=== PATIENT | female | born 1965 | race African-American/Black ===

== ENCOUNTER 2025-03-08 11:50 | Emergency (ER) | payer OTHER ==
[~2025-03-08] VITALS: Ht 175.3 cm; Wt 105.0 kg
[2025-03-08 11:53] VITALS: BP 122/81; PULSE 102; RESP 20; TEMP 36.8; O2SAT 97
[2025-03-08] MEDS: IBUPROFEN 600MG TABLET PO STA (13:00)
[2025-03-08] MEDS: ACETAMINOPHEN 325MG TABLET PO STA (13:01)
[2025-03-08 13:09] LABS: BASOPHILS % 1.5 % (0.0-2.0); EOSINOPHILS % 1.3 % (0.0-5.0); HEMATOCRIT. 38.7 % (36.0-48.0); HEMOGLOBIN. 12.7 g/dL (12.0-16.0); LYMPHOCYTES % 29.5 % (20.0-50.0); MEAN CORPUSCULAR HGB CONC 32.7 g/dL (31.0-37.0); MEAN CORPUSCULAR VOLUME 85.5 fL (81.0-99.0); MEAN PLATELET VOLUME 9.3 fl (7.4-10.4); MONOCYTES % 10.7 % (2.0-8.0); PLATELET 311 x1000/uL (130-400); RED BLOOD CELL COUNT 4.53 mill/uL (4.2-5.4); RED CELL DISTRIBUTION WIDTH 15.9 % (11.6-14.6); WHITE BLOOD COUNT 4.7 x1000/uL (4.5-11.0)
[2025-03-08 13:15] LABS: CHLORIDE 112 mEq/L (98-107); POTASSIUM 3.9 mEq/L (3.5-5.1); SODIUM 143 mEq/L (136-145)
[2025-03-08 13:16] LABS: CARBON DIOXIDE 25 mEq/L (21-32)
[2025-03-08 13:17] LABS: CALCIUM 9.8 mg/dL (8.7-10.4)
[2025-03-08 13:21] LABS: CREATININE 1.1 mg/dL (0.6-1.0); GLUCOSE 114 mg/dL (70-105); UREA NITROGEN BLOOD 9 mg/dL (9-23)
[2025-03-08 13:41] LABS: TROPONIN I HIGH SENSITIVITY < 4 ng/L (3.0-34)
[2025-03-08] MEDS: ONDANSETRON 4MG ODT PO STA (13:56)
[2025-03-08] MEDS: ONDANSETRON HCL 4MG/2ML INJ IM ONE (14:30)
== END 2025-03-08 15:44 | disposition home or self-care (01) ==
LOC: ER 11:50
DX: I50.9 Heart failure, unspecified (principal); I89.0 Lymphedema, not elsewhere classified
CPT/HCPCS: 99285; 71045; 80048; 83880; 85025; 84484; 36415; 93005; Q0162

== ENCOUNTER 2025-03-08 20:43 | Emergency (ER) | payer OTHER ==
[~2025-03-08] VITALS: Ht 167.6 cm; Wt 127.0 kg
[2025-03-08 21:09] VITALS: TEMP 36.7; O2SAT 99
[2025-03-08 22:15] LABS: BASOPHILS % 1.2 % (0.0-2.0); DIFFERENTIAL COMMENT 0; HEMATOCRIT. 42.4 % (36.0-48.0); HEMOGLOBIN. 13.5 g/dL (12.0-16.0); LYMPHOCYTES % 35.7 % (20.0-50.0); MEAN CORPUSCULAR HEMOGLOBIN 27.4 pg (28.0-32.0); MEAN CORPUSCULAR HGB CONC 31.8 g/dL (31.0-37.0); MEAN PLATELET VOLUME 9.4 fl (7.4-10.4); MONOCYTES % 9.8 % (2.0-8.0); NEUTROPHILS % 52.3 % (40.0-76.0); PLATELET 335 x1000/uL (130-400); RED BLOOD CELL COUNT 4.93 mill/uL (4.2-5.4); RED CELL DISTRIBUTION WIDTH 16.9 % (11.6-14.6); WHITE BLOOD COUNT 6.9 x1000/uL (4.5-11.0)
[2025-03-08 22:38] LABS: TROPONIN I HIGH SENSITIVITY < 4 ng/L (3.0-34)
[2025-03-08 22:40] LABS: CHLORIDE 106 mEq/L (98-107); POTASSIUM 3.7 mEq/L (3.5-5.1); SODIUM 141 mEq/L (136-145)
[2025-03-08 22:41] LABS: CARBON DIOXIDE 24 mEq/L (21-32)
[2025-03-08 22:42] LABS: CALCIUM 10.4 mg/dL (8.7-10.4)
[2025-03-08 22:46] LABS: CREATININE 1.1 mg/dL (0.6-1.0)
[2025-03-08 22:47] LABS: ETHANOL BLOOD < 10 mg/dL (<10); GLUCOSE 96 mg/dL (70-105); UREA NITROGEN BLOOD 9 mg/dL (9-23)
[2025-03-08 22:48] LABS: ACETAMINOPHEN < 2 ug/mL (10-30)
[2025-03-09] MEDS: ACETAMINOPHEN 500MG TABLET PO ONE (00:25)
[2025-03-09 06:43] VITALS: BP 116/62; PULSE 55; RESP 16; O2SAT 100
== END 2025-03-09 11:09 | disposition home or self-care (01) ==
LOC: ER 20:43
DX: R07.89 Other chest pain (principal); I50.9 Heart failure, unspecified; M79.10 Myalgia, unspecified site
CPT/HCPCS: 36415; 71045; 80048; 80307; 80320; 80329; 83880; 84484; 85025; 93005; 99285; G0480